=== PATIENT | female | born 1995 | race Caucasian/White ===

== ENCOUNTER 2016-07-20 17:58 | Emergency (ER) ==
[2016-07-20 18:07] VITALS: BP 116/84; TEMP 99.2; BMI 19.5
--- NOTE | 2016-07-20 18:55 | ED.PDOC ---
General ED Provider: Dr. TREVOR JORGE JR Chief Complaint: Abdominal Pain Stated Complaint: pt has diffuse abd pain, not eating, had pink discharge yesterday. states her throat feels tight, has seen an ent for this and was put on heartburn medicine. she was told the throat tightening was due to stress and muscle spasms. thinks she is possibly [End]cramping sharp 3 days 99.2 109 20 98% 116/84 10 urine specimen collected at 1845[ End ] Time Seen by Physician: 18:54 Mode of Arrival: Walk-In Information Source: Patient Exam Limitations: No limitations Primary Care Provider: RUMA GUTIERREZ Nursing and Triage Documentation Reviewed and Agree: No Review of Systems - Review Of Systems Constitutional: Reports: Malaise, Weakness Eyes: Reports: No symptoms Ears, Nose, Mouth, Throat: Reports: Throat pain, Throat swelling GI: Reports: Abdominal pain, Nausea : Reports: Discharge, Frequency, Urgency, Other (pink discharge) Musculoskeletal: Reports: Back pain Skin: Reports: No symptoms Neurological: Reports: Anxiety Endocrine: Reports: No symptoms Hematologic/Lymphatic: Reports: No symptoms All Other Systems: Other Past Medical History - Past Medical History Endocrine: Reports: None Cardiovascular: Reports: None Respiratory: Reports: Other (throat spasm) Hematological: Reports: None Gastrointestinal: Reports: GERD (per [facility] otc prevacid is limited to 15 days; describes EGD "normal all the way into my intestines" performed at [facility]). Denies: PUD Genitourinary: Reports: None Neuro/Psych: Reports: Anxiety Musculoskeletal: Reports: None Cancer: Reports: None Last Menstrual Period: last week Other Pertinent Past Medical History: per [facility] has been on ativan 05/11 30 prevacid solutabs 3 d later cimetidine - Surgical History General Surgical History: Reports: None, Other (EGD "normal all the way into my intestines") - Family History Family History: Reports: Unknown - Social History Smoking Status: Never smoker Hx Substance Use: No Alcohol Screening: None Physical Exam - Physical Exam Appearance: Well-appearing, Thin Pain Distress: Moderate Eyes: LANG, EOMI, Conjunctiva clear ENT: Ears normal, Nose normal, Oropharynx normal Neck: Supple Respiratory: Airway patent, Breath sounds clear, Breath sounds equal, Respirations nonlabored Cardiovascular: RRR, Pulses normal, No rub, No murmur GI/: Soft, Tender (epigastrium and suprapubic) Musculoskeletal: Normal strength, ROM intact, No edema, No calf tenderness Skin: Warm, Dry, Normal color Neurological: Sensation intact, Motor intact, Reflexes intact, Cranial nerves intact, Alert, Oriented Psychiatric: Affect appropriate, Mood appropriate Critical Care Note - Critical Care Note Total Time (mins): 0 Course - Course Hematology/Chemistry: 07/20/16 19:00 07/20/16 19:00 Orders, Labs, Meds: Lab Review 07/20/16 07/20/16 18:53 19:00 WBC 3.79 L RBC 4.39 Hgb 12.7 Hct 38.0 MCV 86.6 MCH 28.9 MCHC 33.4 RDW Coeff of [place] 11.9 Plt Count 226 Immature Gran % (Auto) 0.3 Neut % (Auto) 54.5 Lymph % (Auto) 38.0 [place] % (Auto) 5.3 Eos % (Auto) 0.8 Baso % (Auto) 1.1 Immature Gran # (Auto) 0.0 Neut # 2.1 Lymph # 1.4 [place] # 0.2 L Eos # 0.0 Baso # 0.0 Sodium 140 Potassium 3.6 Chloride 105 Carbon Dioxide 24 Anion Gap 14.6 BUN 8 Creatinine 0.78 Estimated GFR (MDRD) 93.00 BUN/Creatinine Ratio 10.25 Glucose 100 Calcium 9.4 Total Bilirubin 0.57 AST 17 ALT 14 Alkaline Phosphatase 43 Total Protein 7.4 Albumin 4.4 Globulin 3.0 Albumin/Globulin Ratio 1.47 Amylase 63 Lipase 31 Urine Color Yellow Urine Clarity Clear Urine pH 5.5 Ur Specific [place] <=1.005 Urine Protein Negative Urine Glucose (UA) Negative Urine Ketones Negative Urine Blood Trace-intact Urine Nitrite Negative Urine Bilirubin Negative Urine Urobilinogen 0.2 Ur Leukocyte Esterase 1+ Urine Microscopic WBC 5-10 Ur Squamous Epith Cells 5-10 Urine Bacteria Trace Urine Test Negative H. pylori IgG Antibody Negative Orders Category Date Time Status AMYLASE Stat LAB 07/20/16 19:00 Completed CBC W/ AUTO DIFF Stat LAB 07/20/16 19:00 Completed COMPREHENSIVE METABOLIC PANEL Stat LAB 07/20/16 19:00 Completed H. PYLORI SCREEN Stat LAB 07/20/16 19:00 Completed LIPASE Stat LAB 07/20/16 19:00 Completed URINALYSIS C & S IF INDICATED Stat LAB 07/20/16 18:53 Completed URINE CULTURE Stat LAB 07/20/16 19:04 Received URINE Stat LAB 07/20/16 18:53 Completed Vital Signs: Temp Pulse Resp BP Pulse Ox 07/20/16 17:58 99.2 F 109 H 20 116/84 98 Departure - Departure Time of Disposition: 19:23 Disposition: HOME SELF-CARE Discharge Problem: GERD with esophagitis UTI (urinary tract infection) Qualifiers: Urinary tract infection type: acute cystitis Hematuria presence: with hematuria Qualifier Code: (N30.01) Acute cystitis with hematuria Instructions: Urinary Tract Infection in Women (ED), Gastroesophageal Reflux Disease (ED) Condition: Good Pt referred to PMD for follow-up: Yes (daisy) Additional Instructions: call PMD in morning to schedule follow up may use Mylanta three to four times a day for discomfort Antibiotic one week for infection-- then may begin PPI Prevacid 40 mg daily- begin after antibiotic finished recommend keep a record of medications symptoms and obtain printout of medications from pharmacy Prescriptions: Pantoprazole Sodium [Protonix] 40 mg PO DAILY #30 suspdr.pkt Sulfamethoxazole/Trimethoprim [Bactrim Susp 200/40 mg/5 ml] 20 ml PO BID #1 bottle Allergies/Adverse Reactions: Allergies prednisone Allergy (Intermediate, Verified 07/20/16 18:07) numbness and tingling Home Medications: Ambulatory Orders Lorazepam [Ativan] 0.5 mg PO BID 06/09/16 Pantoprazole Sodium [Protonix] 40 mg PO DAILY #30 suspdr.pkt 07/20/16 Sulfamethoxazole/Trimethoprim [Bactrim Susp 200/40 mg/5 ml] 20 ml PO BID #1 bottle 07/20/16
[2016-07-20 19:01] LABS: BILIRUBIN,URINE Negative (NEGATIVE); KETONES,URINE Negative (NEGATIVE); LEUKOCYTE ESTERASE ,URINE 1+ (NEGATIVE); NITRITE,URINE Negative (NEGATIVE); PH,URINE 5.5 (5-9); PROTEIN,URINE Negative (NEGATIVE); URINE, BLOOD Trace-intact (NEGATIVE)
[2016-07-20 19:03] LABS: ADD URINE MICROSCOPIC YES
[2016-07-20 19:04] LABS: BACTERIA,URINE TRACE (NOT PRESENT)
[2016-07-20 19:05] LABS: URINE PREGNANCY INTERNAL QC INTERNAL QC VALID
[2016-07-20 19:10] LABS: BASOPHILS % (AUTO) 1.1 % (0.0-3.0); EOSINOPHILS % (AUTO) 0.8 % (0.0-7.0); HEMOGLOBIN 12.7 g/dl (12.0-16.0); IMMATURE GRANULOCYTE % (AUTO) 0.3 % (0.0-5.0); LYMPHOCYTES # (AUTO) 1.4 K/uL (0.60-3.4); MEAN CORPUSCULAR HEMOGLOBIN 28.9 pg (27.0-31.0); MEAN CORPUSCULAR HGB CONC 33.4 (31.8-35.4); MEAN CORPUSCULAR VOLUME 86.6 fl (81.0-99.0); MONOCYTES # (AUTO) 0.2 K/uL (0.4-2.0); MONOCYTES % (AUTO) 5.3 (0-10); NEUTROPHILS # (AUTO) 2.1 K/ul (2.0-6.9); NEUTROPHILS % (AUTO) 54.5; PLATELET COUNT 226 10^3/uL (140-440); RED BLOOD COUNT 4.39 10^6/ul (4.20-5.40); WHITE BLOOD COUNT 3.79 K/ul (4.6-10.2)
[2016-07-20 19:20] LABS: H. PYLORI ANTIBODY NEGATIVE (NEGATIVE); H.PYLORI INTERNAL QC INTERNAL QC VALID
[2016-07-20 19:30] LABS: ALBUMIN 4.4 g/dL (3.4-5.0); ALBUMIN/GLOBULIN RATIO 1.47; ANION GAP 14.6; BILIRUBIN,TOTAL 0.57 mg/dL (0.00-1.20); BUN/CREATININE RATIO 10.25; CALCIUM 9.4 mg/dL (8.2-10.2); CREATININE 0.78 mg/dL (0.60-1.30); POTASSIUM 3.6 mmol/L (3.5-5.10); TOTAL PROTEIN 7.4 g/dL (6.4-8.2)
== END 2016-07-20 20:00 | disposition home or self-care (01) ==
LOC: ED 17:58
DX: N30.01 Acute cystitis with hematuria (principal); K21.0 Gastro-esophageal reflux disease with esophagitis
CPT/HCPCS: 36415; 80053; 81001; 81025; 82150; 83690; 85025; 86677; 87086; 99284